=== PATIENT | male | born 1970 | race Caucasian/White ===

== ENCOUNTER 2016-12-03 20:43 | Emergency (ER) | payer OTHER ==
[~2016-12-03] VITALS: Ht 190.5 cm; Wt 100.0 kg
[2016-12-03 21:20] VITALS: BP 149/88; PULSE 98; RESP 18; TEMP 99.2; O2SAT 98
[2016-12-04 00:06] VITALS: BP 149/88; PULSE 98; RESP 18; TEMP 99.2; O2SAT 98
[2016-12-04 00:15] VITALS: BP 120/76; PULSE 62; RESP 16; O2SAT 99
[2016-12-04] MEDS ORDERED: ALPR.5 PO (00:28)
[2016-12-04] MEDS ORDERED: CLON0.5T PO (00:28)
[2016-12-04] MEDS ORDERED: CITA10TA4 PO (00:28)
[2016-12-04] MEDS ORDERED: LISI-519 PO (00:28)
--- NOTE | 2016-12-04 00:38 | PD ---
HPI Chief Complaint: Hypertension Time Seen by Provider: 23:57 Travel History International Travel<30 days: No Contact w/Intl Traveler<30days: No Traveled to known affect area: No History of Present Illness HPI The patient is a 46-year-old male who is on Celexa and his dose was changed so that on Friday he started taking 30 mg daily instead of 20. Normally he took 20 in the morning but 9 takes 20 in the morning and 10 before bed. He noticed elevated blood pressure around 176 systolic and blurred vision which lasted about 30 minutes and one eye and then was blurred and the other eye. He took a 0.2 mg clonidine at 8:30 PM tonight and his pressure has normalized now to 120/ 76, he has no blurred vision at this time and never had any focal neurologic change other than the blurred vision. PFSH Past Medical History Hx Anticoagulant Therapy: No Anxiety: Yes Cancer: No Cardiovascular Problems: Yes (Spiking blood pressure) Chemotherapy: No Cerebrovascular Accident: No Diabetes: No Diminished Hearing: No Endocrine: No Gastrointestinal Disorders: No Genitourinary: No Hepatitis: No Hiatal Hernia: No Hypertension: Yes Immune Disorder: No Medical other: No Musculoskeletal: No Neurologic: No Psychiatric: Yes (ANXIETY) Reproductive: No Respiratory: No Thyroid Disease: No Tetanus Vaccination: Unknown Influenza Vaccination: No Past Surgical History Abdominal Surgery: Yes (HERNIA REPAIR AT 6 MONTHS) AICD: No Cardiac Surgery: No Ear Surgery: No Endocrine Surgery: No Eye Surgery: No Genitourinary Surgery: No Gynecologic Surgery: No Joint Replacement: No Neurologic Surgery: No Oral Surgery: No Pacemaker: No Thoracic Surgery: No Other Surgery: Yes (bone marrow biopsy (negative) 06/2014) Social History Alcohol Use: Yes (WEEKENDS PER PT) Tobacco Use: Yes (1ppd) Substance Use: No (PT DENIES) Allergies-Medications (Allergen,Severity, Reaction): Coded Allergies: Bactrim (Verified Allergy, Severe, RASH BURNING, 12/04/16) Contrast Media (Verified Allergy, Severe, 12/04/16) Sulfa (Verified Allergy, Unknown, 12/04/16) Reported Meds & Prescriptions Reported Meds & Active Scripts Active Reported Xanax (Alprazolam) 0.5 Mg Tab 0.5 Mg PO DAILY PRN Lisinopril 5 Mg Tab 5 Mg PO DAILY Clonazepam 0.5 Mg Tab 0.2 Mg PO DAILY Citalopram (Citalopram Hydrobromide) 10 Mg Tab 30 Mg PO DAILY Review of Systems Except as stated in HPI: all other systems reviewed are Neg Physical Exam Narrative GENERAL: Well-nourished, well-developed patient in no apparent distress. His vital signs show initial blood pressure 149/88 but otherwise normal. SKIN: Focused skin assessment warm/dry. HEAD: Normocephalic. EYES: No scleral icterus. No injection or drainage. Pupils equal and light extraocular movements are normal. Grossly, the eyes do not feel hard as in glaucoma. The tonometer is not working here. NECK: Supple, trachea midline. No JVD or lymphadenopathy. There is no meningismus present. CARDIOVASCULAR: Regular rate and rhythm without murmurs, gallops, or rubs. RESPIRATORY: Breath sounds equal bilaterally. No accessory muscle use. GASTROINTESTINAL: Abdomen soft, non-tender, nondistended. MUSCULOSKELETAL: No cyanosis, or edema. BACK: Nontender without obvious deformity. No CVA tenderness. Data Data Last Documented VS Vital Signs Date Time Temp Pulse Resp B/P Pulse Ox O2 Delivery O2 Flow Rate FiO2 12/04/16 00:15 62 16 120/76 99 Room Air 12/04/16 00:06 99.2 MDM Medical Decision Making Medical Screen Exam Complete: Yes Emergency Medical Condition: Yes Medical Record Reviewed: Yes Differential Diagnosis Celexa side effect, sinusitis, intracranial hemorrhagehighly unlikely Narrative Course The patient likely has a Celexa side effect. The patient is a smoker and some of the headache may be a sinusitis. The blurred vision is transient and shifted from wine to the other. Intracranial hemorrhage is extremely unlikely. Virtually all of his symptoms have resolved at this time, it is now 0037. Diagnosis Primary Impression: Medication side effect Additional Impression: Blurred vision Additional Instructions: Continue to take the Celexa as prescribed. Record the side effects and how long they last. Your doctor will decide whether to reduce your dose or continue as is. Given him a call Friday and telling about the transient blurred vision. Med/Other Pt SpecificInfo: No Change to Meds Disposition: DISCHARGE HOME Condition: Stable Edu Galloway MD Dec 04, 2016 00:38
== END 2016-12-04 01:06 | disposition home or self-care (01) ==
LOC: PHED 20:43
DX: H53.8 Other visual disturbances (principal); T43.225A Adverse effect of selective serotonin reuptake inhibitors, initial encounter; I10 Essential (primary) hypertension; F17.210 Nicotine dependence, cigarettes, uncomplicated; Y92.9 Unspecified place or not applicable
CPT/HCPCS: 99283